=== PATIENT | male | born 1965 | race Caucasian/White ===

== ENCOUNTER → 2016-06-12 | Outpatient (CLI) | payer OTHER ==
[~2016-06-12] MED LIST: OMNIPAQUE 350 MG/ML, 100ML BOTTLE ONE
== END | disposition home or self-care (01) ==
LOC: RAD 09:37
PROVIDERS: ATTEND Internal Medicine Hematology & Oncology
DX: C49.9 Malignant neoplasm of connective and soft tissue, unspecified (principal)
CPT/HCPCS: 74177; Q9967

== ENCOUNTER 2019-06-23 08:31 | Outpatient (CLI) | payer OTHER | END 2019-06-23 23:59 | disposition home or self-care (01) | LOC: CVU 08:31 | PROVIDERS: ATTEND Internal Medicine Cardiovascular Disease | DX: I35.8 Other nonrheumatic aortic valve disorders (principal); I10 Essential (primary) hypertension | CPT/HCPCS: 93306 ==